=== PATIENT | female | born 1945 | race Caucasian/White ===

== ENCOUNTER → 2020-12-25 | Outpatient (CLI) | payer OTHER ==
[~2020-12-25] MED LIST: AMLO-211 PO; ATOR20TA37 PO; CALCIUM MAG ZINC PO; CETI10TA32 PO; CYAN-27 PO; FOLI1TAB32 PO; FURO40TA6 PO; GADOTERATE 10 MMOL/20 ML VIAL ONE; LEVO75TA5 PO; LISI40TA9 PO; OMEP20TA62 PO; PANT40TA3 PO; POTA10TA12 PO; SPIR50TA4 PO
== END | disposition home or self-care (01) ==
LOC: CFH 10:06
PROVIDERS: ATTEND Internal Medicine
DX: K70.30 Alcoholic cirrhosis of liver without ascites (principal); R77.2 Abnormality of alphafetoprotein; K80.20 Calculus of gallbladder without cholecystitis without obstruction
CPT/HCPCS: 74183; A9575